=== PATIENT | male | born 1995 | race Caucasian/White ===

== ENCOUNTER 2018-12-11 08:23 | Inpatient (IN) ==
[2018-12-11] MEDS ORDERED: KETOROLAC TROMETHAMINE 15 MG/ML VIAL IV STA (08:43)
[2018-12-11] MEDS ORDERED: AMPICILLIN/SULBACTAM SOD 3,000 MG in 0.9 % SODIUM CHLORIDE 100 ML IV STA (08:43)
[2018-12-11] MEDS ORDERED: SODIUM CHLORIDE 0.9% 1000ML 1,000 ML IV SCH (08:45)
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
[2018-12-11] MEDS ORDERED: BUPIVACAINE 0.5 % 5 MG/1 ML MPF 30ML VIAL INFIL ONE (08:47)
[2018-12-11 09:13] LABS: Basophils # (auto) 0.01 K/uL (0-0.2); Basophils % (auto) 0.1 %; Eosinophils # (auto) 0.14 K/uL (0-0.5); Eosinophils % (auto) 1.8 %; Hematocrit (blood only) 39.3 % (42-52); Hemoglobin 13.7 g/dL (14.0-18.0); Immature Granulocytes # (auto) 0.01 K/uL (0.00-0.02); Immature Granulocytes % (auto) 0.1 %; Lymphocytes # (auto) 1.16 K/uL (1.2-3.4); Lymphocytes % (auto) 14.7 %; Mean Corpuscular Hgb Conc 34.9 g/dL (32-36); Mean Corpuscular Volume 85.4 fL (80-100); Mean Platelet Volume 9.4 fL (7.4-10.4); Monocytes # (auto) 0.67 K/uL (0.11-0.59); Monocytes % (auto) 8.5 %; Neutrophils # (auto) 5.91 K/uL (1.4-6.5); Neutrophils % (auto) 74.8 %; Platelet Count 211 K/uL (130-400); RDW Coefficient of Variation 12.6 % (11.5-14.5); RDW Standard Deviation 39.4 fL (36.4-46.3)
[2018-12-11 09:30] LABS: Albumin Level 3.5 gm/dl (3.4-5.0); BUN Creatinine Ratio 11.9 (10-20); Calcium 8.8 mg/dl (8.5-10.1); Creatinine Clr Calc Pharmacy 153.6 ml/min; Est GFR (Non-African American) 126.8; Potassium 3.5 mmol/L (3.5-5.1)
[2018-12-11 09:35] LABS: Bilirubin,Total 0.5 mg/dl (0.2-1); C Reactive Protein 6.62 mg/dl (0-0.29); Globulin 3.6 gm/dl (2.5-4.0); Total Protein 7.1 gm/dl (6.4-8.2)
[2018-12-11] MEDS ORDERED: IOVERSOL 100ml IV PRN (09:35)
[2018-12-11 09:39] LABS: iSTAT Hemoglobin 12.9 g/dl (14.0-18.0); iSTAT Ionized Calcium 1.13 mmol/l (1.12-1.32)
--- NOTE | 2018-12-11 09:52 | CT Scan Report ---
CT facial bones w con CT DOSE: 676.49 mGy.cm CLINICAL HISTORY: Left facial swelling. Periorbital swelling. TECHNIQUE: The patient was scanned in a dynamic helical fashion during intravenous administration of 93 cc of Optiray 320. Sagittal and coronal reformatted images were acquired. A dose lowering technique was utilized adhering to the principles of ALARA. COMPARISON STUDY: None. FINDINGS: There is left-sided facial edema involving the left periorbital region, left perizygomatic region, and left perimandibular region. There are no inflammatory changes present within the post sep mary space of the left orbit. There is mucosal thickening within the left maxillary sinus. There is a dental apical abscess involving a left maxillary molar (tooth #14). There is equivocal cor tical breakthrough into the overlying left maxillary sinus. There is adjacent soft tissue abscess within the left premaxillary soft tissues measuring 14 x 3 x 9 mm. The visualized portions of the intracranial contents are unremarkable. There is no hydrocephalus. The mastoid air cells are well aerated. The middle ear cavities appear well aerated. Mildly prominent cervical lymph nodes are felt to be reactive. IMPRESSION: 1. Dental periapical abscess involving tooth #14. There is equivocal cortical breakthrough into the o verlying maxillary sinus. There is an adjacent soft tissue abscess within the left premaxillary soft tissues measuring 14 x 3 x 9 mm. There is associated left-sided facial swelling. Dental consultation is recommended in follow-up. Electronically signed by: Tanmay Pleitez M.D. 12/11/2018 9:51 AM
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
[2018-12-11] MEDS ORDERED: ALUMINUM/MAGNESIUM SUSP 30 ML UDC PO PRN (13:30)
[2018-12-11] MEDS ORDERED: ACETAMINOPHEN 325 MG TAB PO PRN (13:30)
[2018-12-11] MEDS ORDERED: PIPERACILL/TAZOBAC CONSULT ACTIVE PRN (13:30)
[2018-12-11] MEDS ORDERED: KETOROLAC 30 MG/ML VIAL IV PRN (13:30)
[2018-12-11] MEDS ORDERED: MAGNESIUM HYDROXIDE SUSP 30 ML UDC PO PRN (13:30)
[2018-12-11] MEDS ORDERED: POLYETHYLENE (MIRALAX) 17 GM PACK PO PRN (13:30)
[2018-12-11] MEDS ORDERED: ONDANSETRON INJ 2 MG/ML 2 ML VIAL IV PRN (13:30)
[2018-12-11] MEDS ORDERED: ZOLPIDEM TARTRATE 5 MG TAB PO PRN (13:30)
[2018-12-11 13:55] LABS: Estimated Average Glucose 108 mg/dl
[2018-12-11] MEDS ORDERED: PIPERACILLIN/TAZOBACTAM 3.375 GM/115 ML BAG IV ONE (14:30)
[2018-12-11] MEDS: LACTATED RINGER'S 1,000 ML IV SCH ×2 (14:31→22:25)
[2018-12-11] MEDS: PIPERACILLIN/TAZOBACTAM 3.375 GM in DEXTROSE 5% 100 ML IV SCH (19:28)
[2018-12-11] MEDS: TRAMADOL HCL 50 MG TABLET PO PRN (21:19)
[2018-12-12] MEDS: TRAMADOL HCL 50 MG TABLET PO PRN ×2 (03:29→13:04)
[2018-12-12] MEDS: PIPERACILLIN/TAZOBACTAM 3.375 GM in DEXTROSE 5% 100 ML IV SCH ×2 (04:42→13:03)
[2018-12-12 07:42] LABS: Basophils # (auto) 0.01 K/uL (0-0.2); Basophils % (auto) 0.2 %; Eosinophils # (auto) 0.17 K/uL (0-0.5); Eosinophils % (auto) 3.9 %; Hematocrit (blood only) 35.1 % (42-52); Hemoglobin 12.2 g/dL (14.0-18.0); Immature Granulocytes # (auto) 0.01 K/uL (0.00-0.02); Immature Granulocytes % (auto) 0.2 %; Lymphocytes # (auto) 1.69 K/uL (1.2-3.4); Mean Corpuscular Hgb Conc 34.8 g/dL (32-36); Mean Platelet Volume 9.3 fL (7.4-10.4); Monocytes # (auto) 0.54 K/uL (0.11-0.59); Monocytes % (auto) 12.5 %; Neutrophils # (auto) 1.91 K/uL (1.4-6.5); Neutrophils % (auto) 44.2 %; Platelet Count 174 K/uL (130-400); RDW Coefficient of Variation 12.4 % (11.5-14.5); RDW Standard Deviation 39.1 fL (36.4-46.3); Red Blood Count 4.08 M/uL (4.7-6.1); White Blood Count 4.33 K/uL (4.8-10.8)
[2018-12-12 08:19] LABS: BUN Creatinine Ratio 9.4 (10-20); Blood Urea Nitrogen 7 mg/dl (7-18); Calcium 8.2 mg/dl (8.5-10.1); Carbon Dioxide 28 mmol/L (21-32); Chloride 105 mmol/L (98-107); Creatinine Clr Calc Pharmacy 178.1 ml/min; Est GFR (African American) > 150.0; Est GFR (Non-African American) 134.8; Glucose 90 mg/dl (70-99); Magnesium 1.8 mg/dl (1.8-2.4); Potassium 3.6 mmol/L (3.5-5.1); Sodium 141 mmol/L (136-145)
[2018-12-12] MEDS ORDERED: PANTOprazole 40 MG TAB PO SCH (09:00)
[2018-12-12] MEDS ORDERED: AMPICILLIN/SULBACTAM SOD 3,000 MG in 0.9 % SODIUM CHLORIDE 100 ML IV SCH (12:00)
--- NOTE | 2018-12-16 23:47 | Consultation Report ---
DATE OF CONSULTATION: 12/12/2018 CHIEF COMPLAINT: Dental abscess in the left maxillary region. I refer you to the patient's admission history and physical and imaging studies. HISTORY OF PRESENT ILLNESS: This is a 23-year-old relatively healthy inmate with a periapical abscess involving tooth #14. There is relatively small soft tissue abscess adjacent to this, he was admitted overnight for IV antibiotics. He had a normal white count of 7.9 on admission and was not febrile. I discussed his care. His hospitalist team and we made the decision to treat him as an outpatient, so we are going to transition him to oral Augmentin and I offered to see the patient the following day in the office for extraction of the tooth and incision and drainage. We also contacted the nursing home to make those arrangements and they were able to provide that service in house and so we confirmed with the nursing home that those procedures would be carried out back at the [facility]. We let them know we are available for assistance in his care as necessary and they will consult us if needed.
--- NOTE | 2018-12-18 07:59 | Discharge Summary ---
Date of Service December 12, 2018 Admission HPI Per Admitting Provider 23 y/o M Hx GERD. Presents from the local [facility] with dental pain and L periorbital swelling. States this began when a filling in a top rear molar cracked this wk. He has not had fevers or rigors. A CT of the face was obtained in the ER demonstrating a dental periapical abscess involving tooth 14 , equivocal cortical breakthrough into the overlying maxillary sinus, adjacent soft tissue abscess within the left premaxillary soft tissues measuring 14 x 3 x 9 mm and associated left-sided facial swelling. The abscess was partially drained in the ER. PMH: GERD Denies prior surgery Social: Current smoker, incarcerated - denies drugs or alcohol Family: States parent are alive and well Principal Diagnosis dental abscess Discharge Exam General: AAO x 3, no distress ENT: Periorbital erythema and swelling (decreased per patient). Inflammation of upper L gums Eyes: SOLA, EOMI Head and neck: Normocephalic, atraumatic, No JVD, neck is supple. Chest/heart: Nontender, S1,2, RRR, no murmurs, no gallops Lungs: CTAB, no wheezing or crackles Abdomen: Nontender, nondistended, BS+ Neuro: AAO x 3, speech is clear, no unilateral weakness or loss of sensation, coordination intact Musculoskeletal: No joint inflammation, muscle tenderness, FROM Skin: No acute rashes or ulcers Extremities: No clubbing, cyanosis, edema Discharge Data Allergies Allergy/AdvReac Type Severity Reaction Status Date / Time No Known Allergies Allergy Unverified 12/11/18 08:44 Consultations 12/11/18 10:42 ED Decision to Admit Stat 12/11/18 13:30 Consult Oromaxillofacial Surgery Routine Ordered Studies 12/11/18 08:43 CT facial bones w con Stat Hospital Course (1) Facial cellulitis: 23 y/o M Hx GERD. Presents from the local [facility] with dental pain and L periorbital swelling. States this began when a filling in a top rear molar cracked this wk. He has not had fevers or rigors. A CT of the face was obtained in the ER demonstrating a dental periapical abscess involving tooth 14 , equivocal cortical breakthrough into the overlying maxillary sinus, adjacent soft tissue abscess within the left premaxillary soft tissues measuring 14 x 3 x 9 mm and associated left-sided facial swelling. The abscess was partially drained in the ER. 1) Dental abscess, premaxillary abscess, facial cellulitis. Oromaxilofacial service consulted, pt started on Zosyn Analgesics provided. Placed on liquid diet and IVF. D/W Oromaxillofacial surgery. Patient is will be discharged on oral antibiotics. Will f/u with oromax. surgeon in AM as outpatient. 2) GERD - cont Omeprazole 3) Glu is notably high regardless of infection at 176 -is normal. Full code - SCDs (2) Dental abscess: Total Time Total Time Spent Total Time Spent (In Minutes): 35 Total Time Includes: Examination of the Patient, Discharge Planning and Medication Reconciliation Discharge Plan Discharge Items [facility] Reason For Visit: EYE INJURY Discharge Diagnosis: Facial cellulitis/Dental periapical abscess involving tooth #1 Discharge Goals: Decrease discomfort Activity: Resume your previous activity Non-emergency contact: Specialist Call non-emergency contact if: you have any medication questions Diet: Full liquid Addtl Provider Instructions: You were diagnosed with an abscess from a tooth. You will see Dr. Rooney tomorrow around noon to get this drained. Will place you on antibiotics via mouth. Prescriptions: New tramadol 50 mg Tablet 50 mg PO Q4H PRN (Reason: moderate pain) Qty: 10 RF: 0 amoxicillin-pot clavulanate [Augmentin] 875-125 mg tablet 1 tab PO BID Qty: 20 RF: 0 Continue acetaminophen 500 mg Tablet 500 mg PO TID PRN (Reason: Pain) RF: 0 omeprazole 20 mg Capsule,Delayed Release(Dr/Ec) 20 mg PO DAILY RF: 0 Discontinued sulfamethoxazole-trimethoprim [Bactrim DS] 800-160 mg Tablet 1 tab PO BID RF: 0 Stand-Alone Forms: [facility] Discharge Orders: Discharge Order (Routine); Ordered 12/12/18 Ordered By: Maynor Salvador Admission Data Admit Date/Time: 12/11/18 12:10 Attending Provider: Maynor Salvador Admit Provider: Juan De La Fuente Primary Care Provider: Edwin HAAS Service: Medical Other Interventions: Discharge Summary Assessment (RN) Last Done: 12/12/18 13:39 DC Date/Time DO NOT enter until pt leaves facility: 12/12/18 14:10
== END 2018-12-12 14:10 | DRG 158 ==
LOC: ED 08:23 → SUATTDRO 12:10 → 4W 12:10
DX: K04.6 Periapical abscess with sinus; R73.9 Hyperglycemia, unspecified; F17.210 Nicotine dependence, cigarettes, uncomplicated; L03.211 Cellulitis of face; K21.9 Gastro-esophageal reflux disease without esophagitis; Z79.899 Other long term (current) drug therapy